=== PATIENT | female | born 1980 | race Caucasian/White ===

== ENCOUNTER 2019-01-18 21:33 | Emergency (ER) | payer BC, SELFPAY ==
[2019-01-18] MEDS ORDERED: Ketorolac Tromethamine 30 MG/ML VIAL ONE (22:44)
[2019-01-18 22:59] LABS: #Eosinphils 0.1 thou/uL (0.0-0.7); #Lymphocytes 0.7 thou/uL (1.20-3.40); #Monocytes 1.2 thou/uL (0.11-0.59); #Neutrophils 8.5 thou/uL (1.40-6.50); %Basophils 0.2 % (0.0-1.0); %Eosinophils 0.5 % (0.0-10.0); %Lymphocytes 6.7 % (21.0-51.0); %Monocytes 11.3 % (0.0-10.0); %Neutrophils 81.2 % (42.0-75.0); Hemoglobin 12.8 g/dL (12.0-16.0); Mean Corpuscular HGB CONC 34.7 g/dL (32.0-36.0); Mean Corpuscular Hemoglobin 30.4 pg (27.0-31.0); Mean Corpuscular Volume 87.6 fL (78.0-98.0); Mean Platelet Volume 8.2 fL (7.4-10.4); Platelet Count 151 thou/uL (130-400); White Blood Cell (WBC) Count 10.4 thou/uL (4.8-10.8)
[2019-01-18 23:18] LABS: ALT (SGPT) 12 U/L (8-55); AST (SGOT) 17 U/L (5-34); Albumin 4.2 g/dL (3.5-5.0); Alkaline Phosphatase 56 U/L (40-110); Anion Gap 11 mmol/L (10-20); BUN (Urea Nitrogen) 9 mg/dL (7.0-18.7); Bilirubin, Total 0.6 mg/dL (0.2-1.2); Calc. Creatinine Clearance 0 mL/min (70-130); Calcium 9.1 mg/dL (7.8-10.44); Carbon Dioxide 22 mmol/L (22-29); Chloride 105 mmol/L (98-107); Estimated GFR-MDRD 61; Globulin 3.1 g/dL (2.4-3.5); Glucose 124 mg/dL (70-105); Potassium 3.3 mmol/L (3.5-5.1); Protein, Total 7.3 g/dL (6.0-8.3); Sodium 135 mmol/L (136-145)
== END 2019-01-18 23:56 | disposition home or self-care (01) ==
LOC: ERS 21:33
DX: R19.7 Diarrhea, unspecified (principal); R50.9 Fever, unspecified
CPT/HCPCS: 80053; 85025; 87804; 96361; 96374; J1885

== ENCOUNTER → 2019-01-21 | Day surgery (SDC) | payer SELFPAY ==
[~2019-01-21] MED LIST: Acetaminophen 500 MG TAB ONE; Bupivacaine HCl 0.5%/Epinephrine 1:200,000/PF 30 ml Vial ONE; Dexamethasone 20 MG/5 ML VIAL ONE; Fentanyl 100 MCG/2 ML VIAL ONE; Glycopyrrolate 0.2 MG/ML 5 ML SYRINGE ONE; Ibuprofen 800 MG TAB ONE; Iopamidol 370 76% 100 ML VIAL ONE; Ketorolac Tromethamine 30 MG/ML VIAL ONE; Lidocaine 1% PF 5 ML VIAL ONE; Meperidine HCl/PF 25 MG/ML VIAL ONE; Midazolam HCl 2 mg/2 ml Vial ONE; Ondansetron PF 4 MG/2 ML Vial ONE; PROPOFOL 200 MG/20 ML VIAL ONE; Piperacillin/Tazobactam 4.5 GM VIAL ONE; Rocuronium Bromide 10 MG/ML (10ML VIAL) ONE; Succinylcholine Chloride 20 MG/ML 10 ml SYRINGE FS ONE; cefTRIAXone\\ROCEPHIN 1 GM VIAL ONE; ePHEDrine/0.9% NaCl/PF SYRINGE 50 mg/10 ml ONE
[2019-01-21 12:35] LABS: Bilirubin Negative (Negative); Blood, Urine Trace (Negative); Glucose, Urine (Dipstick) Negative (Negative); Leukocyte Small (Negative); Nitrite Negative (Negative); Protein, Urine (Dipstick) 30 mg/dL (Neg-Trace); Urobilinogen 0.2 mg/dL (Less than 2)
[2019-01-21 12:38] LABS: Clarity Hazy (Clear)
[2019-01-21 12:40] LABS: Bacteria/HPF 2+ HPF (None Seen); RBC/HPF 0-3 HPF (0-3)
[2019-01-21 12:42] LABS: Hemoglobin 11.5 g/dL (12.0-16.0); Mean Corpuscular HGB CONC 33.2 g/dL (32.0-36.0); Mean Corpuscular Hemoglobin 28.7 pg (27.0-31.0); Mean Corpuscular Volume 86.4 fL (78.0-98.0); Platelet Count 152 thou/uL (130-400); Red Blood Cell (RBC) Count 3.99 mill/uL (4.20-5.40); White Blood Cell (WBC) Count 7.1 thou/uL (4.8-10.8)
[2019-01-21 12:45] LABS: ALT (SGPT) 18 U/L (8-55); AST (SGOT) 21 U/L (5-34); Albumin 3.8 g/dL (3.5-5.0); Alkaline Phosphatase 48 U/L (40-110); Anion Gap 15 mmol/L (10-20); BUN (Urea Nitrogen) 6 mg/dL (7.0-18.7); Bilirubin, Total 0.5 mg/dL (0.2-1.2); Calc. Creatinine Clearance 0 mL/min (70-130); Calcium 8.8 mg/dL (7.8-10.44); Carbon Dioxide 22 mmol/L (22-29); Chloride 103 mmol/L (98-107); Estimated GFR-MDRD 69; Glucose 113 mg/dL (70-105); Potassium 3.2 mmol/L (3.5-5.1); Protein, Total 6.8 g/dL (6.0-8.3); Sodium 137 mmol/L (136-145)
[2019-01-21 12:49] LABS: Eosinophils 1 % (0-10); Lymphocytes 12 % (21-51); MDiff Complete? YES; Mean Platelet Volume 8.8 fL (7.4-10.4); Monocytes 10 % (0-10); Neutrophil 74 % (42-75); Platelet Morphology Comment Appears Adequate; RBC Morphology Normal; Reactive Lymphocytes 2 % (0-10)
[2019-01-21 13:56] LABS: Pregu Control Background? CLEAR/WHITE (CLR/WHITE); Pregu Control Bar Appear? YES (CONTROL BAR); Specific Gravity 1.008 (1.002-1.036)
[2019-01-21 13:58] LABS: Pregnancy Test - Urine (BHCG) Negative (Negative)
--- NOTE | 2019-01-21 14:17 | CT ---
CT ABDOMEN AND PELVIS: HISTORY: Previous. Chills. COMPARISON: None. Procedure: Multiple contiguous axial images were obtained and a CT of the abdomen and pelvis with IV contrast. C oronal reformats were performed. FINDINGS: Lower Chest: Minimal dependent atelectatic change. Vessels: Normal caliber aorta. Heart: Normal heart size. No significant pericardial fluid. Abdomen: Portal vein:Patent. Gallbladder: No calcified gallstones. Normal caliber wall. Liver: within normal limits. Pancreas: within normal limits. Spleen: within normal limits. Adrenals: within normal limits. Kidneys: Bilateral striated nephrogram phase. Bilaterally no obstructive uropathy. Mild prominence of the mid right ureter and mid left ureter without associated obstructing calculus. Mild enhancement of the left and right ureter. Peritoneum: Trace amount of fluid in both paracolic gutters. Bowel: Limited evaluation due to the lack of oral contrast administration. No evidence of bowel obstr uction. Ileocecal junction is unremarkable. Portion of the appendix appears to be fluid-filled with adjacent inflammatory change. A portion of the appendix appears to be air-filled. Correlate for appen dicitis. Appendix does measure 0.8 cm in diameter.. Scattered fecal material in a nondistended, nondilated colon. Mesentery and Retroperitoneum: No enlarged mesenteric or retroperitoneal lymph nodes. Abdominal Wall: within normal limits. Pelvis: Reproductive Organs: Uterus and adnexal structures are grossly unremarkable. Previously enhancing diana trally hypodense lesion in the right adnexa compatible with an ovarian cyst, measuring 2.6 cm in the craniocaudal dimension. Pelvis: No pelvic lymphadenopathy or free air. There is slightly complex free fluid in the pelvis. Bladder: No obvious mucosal abnormality. Bones: within normal limits. IMPRESSION: 1. Striated nephrogram phase along with dilatation and enhancement of the ureter suggesting bilateral ascending urinary tract infection and bilateral pyelonephritis. 2. Possible early appendicitis without evidence of abscess or perforation. Results of study discussed with Dr. Klein 01/21/2019 at 2:16 PM. Code CR Transcribed Date/Time: 01/21/2019 2:23 PM
--- NOTE | 2019-01-21 18:42 | HP ---
HISTORY OF PRESENT ILLNESS: Mariam Abdi is a 38-year-old female, who began having right flank pain yesterday, felt pain in her right abdomen, suffered anorexia, nausea, increased pain with movement, had fevers to 103 degrees. She presented to the emergency room and noted to have a white count of 7 and hemoglobin 11.5. Basic metabolic profile essentially unremarkable. Urinalysis revealed urine negative test, 2+ bacteria. Cultures obtained, pending. She underwent a CAT scan of abdomen and pelvis revealing changes consistent with pyelonephritis and appendicitis. She received Rocephin at [facility] and was transferred here for laparoscopic video appendectomy. She has received Zosyn here IV. She was given Keflex p.o. for outpatient treatment of her pyelonephritis. ALLERGIES: NONE. TOBACCO: None. ALCOHOL: Rarely. MEDICATIONS: None routinely. PAST SURGICAL HISTORY: Two ectopics. SOCIAL HISTORY: She does say 3 to 4 drinks, one twice a week. 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 FAMILY HISTORY: Diabetes, otherwise noncontributory. REVIEW OF SYSTEMS: Noncontributory. PHYSICAL EXAMINATION: VITAL SIGNS: Weight 70 kg, heart rate 122, temperature 100.8 degrees, O2 saturation 97%, blood pressure 121/58. HEAD, EARS, EYES, NOSE, AND THROAT: Unremarkable. Sclerae nonicteric. LUNGS: Clear to auscultation. CARDIAC: Regular rate and rhythm without murmur or gallop. ABDOMEN: Tenderness in the right abdomen, right flank. EXTREMITIES: Unremarkable. ASSESSMENT AND PLAN: 1. Pyelonephritis, on oral antibiotics. Discharge provided by the emergency room. 2. Appendicitis, laparoscopic video appendectomy. Risks of infection, bleeding, reoperation discussed. She consents. Job ID: [id number]
--- NOTE | 2019-01-21 22:00 | OP ---
DATE OF PROCEDURE: 01/21/2019 PREOPERATIVE DIAGNOSES: Pyelonephritis, acute appendicitis. POSTOPERATIVE DIAGNOSES: Pyelonephritis, normal-appearing appendix during laparoscopy (false-positive CAT scan). PROCEDURE PERFORMED: Laparoscopic video appendectomy. ANESTHESIA: General, local 0.5% Marcaine with epinephrine 30 mL. DESCRIPTION OF PROCEDURE: The patient was taken to the operating room where under general anesthesia, Mendez catheter was placed at the beginning of procedure and removed at the end. Abdomen was prepared with ChloraPrep and draped in routine fashion. 0.5% Marcaine with epinephrine was infiltrated in the skin and subcutaneous tissue about all port sites, 30 mL of volume in total was used. Infraumbilical incision was made. Pneumoperitoneum to 15 mmHg was obtained with a Veress needle, replaced with a 5 port, video laparoscope was inserted. Right lateral subcostal incision was made and a 5 port was placed. Suprapubic incision was made and a 12 port was placed. Appendix appeared to be normal as the mesoappendix taken down with the LigaSure. The stump of the appendix was divided with Endo-KOLE blue load stapler. Cecal stump was hemostatic and secured after application of clips. Good hemostasis was noted as irrigant and pneumoperitoneum were evacuated. All instruments were removed. Suprapubic fascia was approximated with 0 Vicryl UR needle and all skin incisions were approximated with interrupted subdermal 4-0 Monocryl and [place] glue applied. Job ID: [id number]
== END ==
LOC: SCSER 11:30 → SDC/OP 17:39
PROVIDERS: ATTEND Specialist
PROC: 0DTJ4ZZ Resection of Appendix, Percutaneous Endoscopic Approach (ICD-10-PCS; principal; 2019-01-21)
DX: K35.80 Unspecified acute appendicitis (principal); N12 Tubulo-interstitial nephritis, not specified as acute or chronic
CPT/HCPCS: 74177; 80053; 81003; 81015; 81025; 83605; 85025; 87040; 87077; 87086; 87186; 87804; 88304; 96361; 96365; 96375; J0131; J0670; J0696; J1100; J1885; J2001; J2175; J2250; J2405; J2543; J2704; J3010; Q9967